=== PATIENT | male | born 1995 | race Caucasian/White ===

== ENCOUNTER 2024-10-01 14:50 | Outpatient (AMB) | payer BC, SELFPAY ==
--- NOTE | 2024-10-01 15:10 | A.OFFPC_ITS ---
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 // Requesting a PE Intake Note: patient is scheduled to establish care Hospice Home Care Coordinator Required: No Allergies No Known Allergies Allergy (Verified 10/01/24 15:13) Medication List - Last Reconciled 10/01/24 by Douglas Angulo MD No Known Home Meds Tobacco use date assessed: 10/01/24 Dental Screening Dental Screen Date: 10/01/24 Did you have a dental visit in the last 12 months?: Yes Did you have a dental problem in the last 6 months where you did not have access to dental care?: No Was dental information given to patient?: Patient has dentist 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 ?? Prior PCP:?No PCP Last office visit/CPE:? > 5 yrs Acute issue(s):? Est Care ?? PMHx:? 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 SurgHx:?L knee foreign body. FHx:? Mom: Anemia. Dad: CAD, AL age 42 & 44. SocHx: Nonsmoker, EtOH None. No drugs PFSH Social History Housing: House Patient Tobacco Use Status: Never used Tobacco e-Cigarette/Vaping Use: Never Used service: No Current occupational status: employed Current occupation: [employer] Current occupational exposures/hazards: Yes Cognitive needs: No Hearing needs: No Vision needs: No Questionnaire PHQ-9 Over the last 2 weeks, how often have you been bothered by any of the following problems? 1. Little interest or pleasure in doing things: not at all 2. Feeling down, depressed, or hopeless: not at all 3. Trouble falling or staying asleep, or sleeping too much: not at all 4. Feeling tired or having little energy: not at all 5. Poor appetite or overeating: not at all 6. Feeling bad about yourself - or that you are a failure or have let yourself or your family down: not at all 7. Trouble concentrating on things, such as reading the newspaper or watching television: not at all 8. Moving or speaking so slowly that other people could have noticed. Or the opposite - being so fidgety or restless that you have been moving around a lot more than usual: not at all 9. Thoughts that you would be better off or of hurting yourself in some wa y: not at all Total score: 0 Depression Screening Interpretation: Negative Depression Screening Done: Yes 30016 - PHQ-9 Billing: Yes Source: Developed by Drs. Arnulfo Arenas, Shira Breen, Chun Jarrell and colleagues, with an educational sasha from [employer]. Thrive Questionnaire Date Thrive assessed: 10/01/24 I am a: Patient What is your living situation today?: I have a steady place to live Within the past 12 months, did the food you bought not last and you didn't have the money to get more?: Never true Within the past 12 months, did you worry whether your food would run out before you got money to buy more?: Never true Do you have trouble paying for medicines?: No Do you have trouble getting transportation to medical appointments?: No Do you have trouble paying your heating and electricity bill?: No Do you have trouble taking care of your child, family member or friend?: No Do you have trouble with day-to-day activities such as bathing, preparing meals, shopping, managing finances, etc.?: No Are you currently unemployed and looking for a job?: No Are you interested in more education?: No Please select the resources that you would like help with: None Currently or been in a relationship where the following occur: No concerns reported THRIVE Score: 0 AUDIT C Alcohol Use Questionnaire (AUDIT-C) 1. How often do you have a drink containing alcohol?: Never 3. How often do you have six or more drinks on one occasion?: Never Total Score: 0 Score Reviewed/Action Taken: Yes ELISE-7 AMB Questionnaire ELISE-7 Date ELISE - 7 assessed: 10/01/24 Feeling nervous, anxious, or on edge: 0 = Not at all Not being able to stop or control worryin = Not at all Worrying too much about different things: 0 = Not at all Trouble relaxin = Not at all Being so restless that it is hard to sit still: 0 = Not at all Becoming easily annoyed or irritable: 0 = Not at all Feeling afraid as if something awful might happen: 0 = Not at all Total ELISE-7 score (0-4 normal; 5-9 mild; 10-14 moderate; 15-21 severe): 0 Source: Developed by Drs. Arnulfo Arenas, Shira Breen, Chun Jarrell and colleagues, with an educational sasha from [employer]. ELISE-7 Assessment Billing ELISE-7 Assessment Tool: ELISE-7 Assessment 67803 Review of Systems Const Denies chills, Denies fatigue, Denies fever(s), Denies headache(s) and Denies weakness Eyes Denies change in vision ENT Denies dizziness, Denies headache(s), Denies hearing loss, Denies nasal congestion, Denies sinus pain, Denies sinus pressure and Denies sore throat Card Denies chest pain, Denies lightheadedness, Denies dyspnea and Denies other (palpitations) Resp Denies cough, Denies dyspnea and Denies wheezing GI Denies abdominal pain, Denies melena, Denies hematochezia, Denies change in bowel habits, Denies dyspepsia and Denies nausea Denies hematuria and Denies dysuria Musc Denies abnormal gait, Denies myalgias, Denies arthralgias, Denies numbness and Denies tingling Skin/Breast Denies rash, Denies unusual bruising and Denies wounds Neuro Denies abnormal gait, Denies dizziness, Denies headache(s), Denies memory loss, Denies numbness, Denies Sensory deficit (Neuro), Denies tingling and Denies weakness Psych Denies anxiety, Denies depression and Denies memory loss Endo Denies cold intolerance, Denies fatigue, Denies heat intolerance, Denies polydipsia and Denies polyuria Jose Alfredo/Lymph Denies easy bleeding and Denies easy bruising Aller/Immun Denies wheezing Physical exam (Primary Care) Vital Signs: Last Vital Signs Temp 98.7 F 10/01/24 15:17 Pulse 73 10/01/24 15:17 Resp 16 10/01/24 15:17 BP 120/80 10/01/24 15:17 Pulse Ox 96 10/01/24 15:17 Oxygen Delivery Method Room Air 10/01/24 15:17 BMI result Body Mass Index 30.7 Tobacco/Smoking Status: Tobacco use Status Tobacco use date assessed 10/01/24 10/01/24 15:21 Patient Tobacco Use Status Never used Tobacco 10/01/24 15:21 e-Cigarette/Vaping Use Never Used 10/01/24 15:21 PHQ-9: PHQ-9 Score PHQ-9: Total score 0 10/01/24 15:23 Depression Screening Interpretation: Negative Thrive Assessment: Date of Thrive Assessment Date Thrive assessed 10/01/24 10/01/24 15:21 Currently or been in a relationship where the following occur: No concerns reported Const General: no acute distress, well developed, alert and awake Nutritional Appearance: well nourished Orientation/consciousness: patient oriented x3 HENMT Head: Yes normocephalic and Yes atraumatic Ears: hearing grossly normal bilaterally and TM's normal bilaterally General nose exam: Normal external nose present and Normal nares present Mouth: Normal oral and palatal mucosa present and moist mucous membranes Teeth and gingiva: dentition normal Throat: Yes posterior oropharynx normal Eyes General: appearance normal, both eyes and all related structures Pupils: Equal, round and reactive pupils present and Pupil accommodation reflex normal EOM: EOMs intact bilaterally Neck Neck: Yes normal visual inspection, Yes no lymphadenopathy and Yes trachea midline Thyroid: Thyroid normal Carotids: no bruits Lymphatic: no lymphadenopathy noted Chest Chest palpation & inspection: normal inspection of the chest Resp Effort & Inspection: normal respiratory effort Auscultation: clear to auscultation bilaterally Cardio Rate: regular rate Rhythm: regular rhythm Heart sounds: S1 normal heart sound present, S2 normal heart sound present, no gallops, no murmurs and no rubs Bruits: no abdominal aortic bruits and no carotid bruits GI Palpation (GI): No Abdominal aortic bruit present, Soft to palpation, nontender, No hepatosplenomegaly present and No Rebound tenderness present Auscultation: normal bowel sounds General: Yes no CVA tenderness Back/Spine/Pelvis Back: no CVA tenderness Cervical Spine: cervical ROM normal and No Cervical spine tenderness Thoracic/Lumbar Spine: thoraco-lumbar ROM normal, No pain with thoraco-lumbar ROM, No thoracic spinal tenderness and No lumbar spinal tenderness Skin Lesions: no lesions Rashes: no rashes Trauma: no lacerations or abrasions Wounds: no wounds Nails: normal Neuro General: patient oriented x3 Cranial nerves: Yes Equal, round and reactive pupils present Cognition (Neuro): normal cognition Gait exam (Neuro): Normal gait present Motor exam (neuro): 5/5 motor strength present throughout Sensory Exam: No Sensory deficit (Neuro) Deep tendon reflexes (DTR's): Right patellar reflex intensity grade: 2+ and Left patellar reflex intensity grade: 2+ Extrem General: Yes normal to inspection and No edema Psych Appearance: grossly normal Affect: normal affect Attitude: cooperative Thought process: Normal thought process present Coding Level of Care Code New Pt Level 3 (74602) New Pt Prev Care 18-39yr(51548 Diagnoses Adult general medical exam Z00.00 Family history of early CAD Z82.49 Additional Codes ELISE-7 Assessment Billing - ELISE-7 Assessment Tool: ELISE-7 Assessment 74443 ([id number]) PHQ-9 - 77015 - PHQ-9 Billing: Yes ([id number]) Assessment & Plan Assessment & Plan (1) Adult general medical exam: Code(s): Z00.00 - Encounter for general adult medical examination without abnormal findings Category: Medical Plan: 28-year-old?male?presents?as?new?patient?for?complete?physical?exam Encouraged?healthy?diet?with?active?lifestyle?and?plenty?of?exercise (2) Family history of early CAD: Code(s): Z82.49 - Family history of ischemic heart disease and other diseases of the circulatory system Category: Medical Plan: Strong?fam lonny?history?of?coronary?artery?disease?with?early?AL?(father?in?his?40s). Will?maintain high?index?of?suspicion?for cardiovascular disease?in?patient's?40s?and?will?maintain?good coronary?health?cardi ovascular?health. Plan Patient?notes?that?he?had?what?he?presumes?was?a?spurious?diagnosis?of?leukemia? at?age?13.??He?says?that?he?was?monitored?and?not?treated. No?adverse?sequela?and?patient?says?he?has?maintain?good?health. Check labs. Orders: Orders Comprehensive [place]. Panel Fast Today Z00.00 - Encounter for general adult medical examination without abnormal findings CT NG by PCR Today Z11.3 - Encounter for screening for infections with a predominantly sexual mode of transmission Microalbumin, Random (w Creat) Today I10 - Essential (primary) hypertension TSH reflex Free T4 Today Z00.00 - Encounter for general adult medical examination without abnormal findings Hepatitis B,C Profile Today Z11.3 - Encounter for screening for infections with a predominantly sexual mode of transmission Complete Blood Count Auto Diff Today Z00.00 - Encounter for general adult medical examination without abnormal findings Lipid Panel Today Z00.00 - Encounter for general adult medical examination without abnormal findings HIV Ab/Ag Today Z11.3 - Encounter for screening for infections with a predominantly sexual mode of transmission UA CC w/rflx Micro + Cult Today Z00.00 - Encounter for general adult medical examination without abnormal findings
[2024-10-01 15:17] VITALS: BP 120/80; PULSE 73; RESP 16; TEMP 37.1; O2SAT 96; BMI 30.7
--- OUTSIDE RECORDS SUMMARY | 2024-10-01 17:54 | XMS_ITS | Clinical Summary ---
Author Organization [facility] Address [address] [place] [address] Care Team Providers Care Etiquette Teacher Name Role Phone Unavailable Primary Care Provider Unavailabl e Source Comments PLEASE NOTE, if this patient is a minor, it may be UNLAWFUL to discuss sensitive information that is contained in these records (such as FAMILY PLANNING, MENTAL HEALTH or SUBSTANCE ABUSE) with the minor patient's parent or other person without the patient's specific authorization.[facility] Active Problems Problem Noted Date Diagnosed Date Immune to varicella 10/21/2016 Scoliosis 10/20/2016 Overview (10/20/2016): CXR: RUL projection of anterior rib 2. End on vessels. Scoliosis. 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 Bilateral shadow of nipples. Immunizations Immunization Administration Dates Next Due DTAP (DAPTACEL),5 PERTUSSIS ANTIGENS ,07/01/1998,05/20/1998,02/25 Flu, Preservative Free 02/08/2017 HEP A-HEP B ([place]) 02/08/2017 HPV, QUADRIVALENT 02/08/2017,10/20/2016 Hep A, Ped/adol, 2 Dose 10/20/2016 Hep B, Adult/Adol (ENERGIX/RECOMBIVAX) 8,11/24/2016 History Of Varicella 10/31/2012 MENINGOCOCCAL MCV4P (MENACTRA) 10/20/2016 MMR (MMR II/Priorix) 11/24/2016,10/03/2003 Measles, Live 11/27/1998 Moderna COVID-19 Vaccine, re d cap blue label, 12+ Primary Series 12/23/2020,11/25/2020 Mumps, Live 11/27/1998 OPV, Trivalent 06/20/2012, 4,11/04/2000,10/11 Rubella, Live 10/03/2003,06/16/1999 TDAP 10/20/2016 Td (adult) unspecified 02/27/2013,12/26/2003 Social History Tobacco Use Types Packs/Day Years Used Date Smoking Tobacco: Never Smokeless Tobacco: Never Alcohol Use Standard Drinks/Week Comments No 0 (1 standard drink = 0.6 oz pur e alcohol) Social Connections Answer Date Recorded Social Connections and Isolation 0 11/25/2020 Financial Resource Strain Answer Date R ecorded Financial Resource Strain 0 2020 Stress Answer Date Recorded Stress 0 11/25/2020 Physical Activity Answer Date Recorded Physical Activity 0 11/25/2020 Food Insecurity Answer Date Recorded Food 0 11/25/2020 Transportation Needs Answer Date Record ed Transportation 0 11/25/2020 Housing Stability Answer Date Recorded Housing 0 11/25/2020 Safety and Environment Answer Date Tj rded Safety 0 11/25/2020 Utilities Answer Date Recorded Utilities 0 11/25/2020 Employment Answer Date Recorded Employment 0 11/25/2020 Sex and Gender Information Value Date Recorded Sex Assigned at Male 02/08/2017 7:49 AM PDT Legal Sex Male 10:58 AM PDT Gender Identity Male 02/08/2017 7:49 AM PDT Sexual Orientation Straight 02/08/2017 7: 49 AM PDT Last Filed Vital Signs Vital Sign Reading Time Taken Comments Blood Pressure 122/78 02/08/2017 9:49 AM EDT Pulse 100 02/08/2017 9:49 AM EDT Temperature 37.1 ??C (98.7 ??F) 02/08/2017 9:49 AM ED T Respiratory Rate 16 02/08/2017 9:49 AM EDT Oxygen Saturation - - Inhaled Oxygen Concentration - - Weight 83.7 kg (184 lb 8 oz) 02/08/2017 9:49 AM EDT Height 175.9 cm (5' 9.25 ) 02/08/2017 9:49 AM ED T Body Mass Index 27.05 02/08/2017 9:49 AM EDT Plan of Treatment Health Maintenance Due Date Last Done Comments Anxiety Screening 1997 Hepatitis C Screening 1997 Tobacco Screening 1997 Imm-HPV (3 - Male 3-dose series) 05/03/2017 02/09/20 17, 10/20/2016 Annual Wellness (Adult): Ind icated (All Coverage) 02/08/2018 02/08/2017 Hypertension Screening (#1) 02/08/2020 Els-NOIVE-50 ( season) 2023 021, 11/25/2020 Imm-Influenza (#1) 2023 02/08/2017 Alcohol and Drug Screen 04/24/2024 02/08/2017 Depression Annual Screen 04/24/2024 Imm-DTaP/Tdap/Td (8 - Td or Tdap) 11/09/2030 11/09/2020, 10/20/2016, 02/27/2013, Additional history exists HIV Screening Completed 10/20/2016 Imm-Hepatitis B Completed 09/25/2017, 01/22, 11/24/2016 Procedures Procedure Name Priority Date/Time Associated Diagnosis Comments ANTIBODY HIV-1&HIV-2 SINGLE RESULT Routine 10/20/2016 1:20 PM EDT Refugee health examination Need for vaccination from Last 3 Months or Most Recently Relevant to Health Maintenance Results * HIV-1 & HIV-2 ANTIBODIES (10/20/2016 1:20 PM EDT) [facility] HIV 1 AND 2 ANTIBODY SCREEN NEGATIVE NEGATIVE [facility] Comment: This assay is a 4th generation assay allowing for earlier detection of HIV infection by detecting the presence of the HIV-1 p24 antigen as well as the traditional antibodies to HIV type 1 (including group O) and type 2. ??Use of a 4th generation assay is the current CDC recommendation for HIV screening. Blood specimen (specimen) Blood / Unknown 10/20/2016 1:20 PM EDT 10/20/2016 1:25 PM EDT [facility] - 10/20/2016 4:31 PM EDT [employer] [address] [place] [id number] PT ID [id number] ORD# [id number] Nataly Rose PA-C LAB - BLOOD DRAW Final [facility]u lt [facility] [address] [place] [address], from Last 3 Months or Most Recently Relevant to Health Maintenance
== END 2024-10-01 15:43 | disposition home or self-care (01) ==
LOC: HO.HMCFM 14:51
PROVIDERS: PCP Family Medicine; Visit Provider Family Medicine
DX: Z00.00 Encounter for general adult medical examination without abnormal findings (principal); Z82.49 Family history of ischemic heart disease and other diseases of the circulatory system

== ENCOUNTER → 2024-10-01 14:50 | Outpatient (BNVA) | payer BC, SELFPAY | PROVIDERS: PCP Family Medicine; Visit Provider Family Medicine | DX: Z00.00 Encounter for general adult medical examination without abnormal findings (principal); I10 Essential (primary) hypertension; Z82.49 Family history of ischemic heart disease and other diseases of the circulatory system | CPT/HCPCS: 96127 ==

== ENCOUNTER 2024-10-04 16:32 | Outpatient (REF) | payer BC, SELFPAY ==
[2024-10-04 16:48] LABS: MANUAL DIFF FLAG NO
[2024-10-04 17:12] LABS: Appearance Urine Clear; Color Urine Dark Yellow; Glucose Urine UA Negative (Negative); Leukocyte Esterase Urine Negative (Negative); Nitrite Urine Negative (Negative); PH 5.5 (5.0-9.0); Specific Gravity - Urine >= 1.030 (1.005-1.025); Urine Blood Negative (Negative); Urine Ketones 40 mg/dL (Negative); Urine Protein Negative (Neg-Trace)
[2024-10-04 17:14] LABS: Basophils Percent Auto 0.5 % (0-2); Eosinophils Absolute Auto 0.1 X10*3/uL (0.0-0.4); Hematocrit 44.9 % (42.0-52.0); Hemoglobin 15.2 g/dl (14.0-18.0); Imm Gran Abs Auto 0.01 X10*3/uL (0.00-0.03); Imm Gran Pct Auto 0.2 % (0.0-0.4); Lymphocytes Percent Auto 35.1 % (20-40); Mean Corpuscular HGB Conc 33.9 g/dl (31.0-36.0); Mean Corpuscular Hemoglobin 28.6 pg (27.0-33.0); Mean Corpuscular Volume 84.4 fL (80.0-98.0); Mean Platelet Volume 9.9 fL (9.4-12.4); Monocytes Absolute Auto 0.5 X10*3/uL (0.1-1.2); Neutrophils Absolute Auto 3.1 x10*3/uL (2.0-8.3); Neutrophils Percent Auto 54.2 % (45-73); Platelet Count 256 X10*3/uL (160-400); Red Blood Count 5.32 X10*6/uL (4.60-5.80); White Blood Count 5.8 X10*3/uL (4.8-10.8)
[2024-10-04 17:36] LABS: Microalbum/Creatinine Ratio Ur 2.5 ug/mg cr (<30)
[2024-10-04 17:41] LABS: Alanine Aminotransferase 25 U/L (0-40); Alkaline Phosphatase 54 U/L (39-117); Anion Gap 13 (12-20); Aspartate Amino Transferase 32 U/L (5-37); Bilirubin Total 1.2 mg/dL (0.0-1.0); Blood Urea Nitrogen 21 mg/dL (9-16); Calcium 9.6 mg/dL (8.4-10.2); Carbon Dioxide 25 mmol/L (22-29); Chloride 107 mmol/L (96-108); Cholesterol 234 mg/dL (<200); Estimated Glomerular Filt Rate > 60; Glucose Fasting 82 mg/dL (60-99); HDL Cholesterol 48 mg/dL (>40); LDL Cholesterol Calculated 174 mg/dL (<100); Potassium 3.9 mmol/L (3.3-5.1); Sodium 141 mmol/L (135-145); Total Protein 7.5 g/dL (6.5-8.0); Triglycerides 61 mg/dL (<150)
[2024-10-04 17:56] LABS: TSH reflex Free T4 1.01 uIU/mL (0.32-4.0)
[2024-10-07 04:28] LABS: HBS Num1 9.61 mIU/mL (0-7.99); HBc Num1 0.08 S/CO (0.00-0.79); HBsAGNum1 0.39 S/CO (0.00-0.99); HIV AB/AG Nonreactive (Nonreactive); HIV Num 1 0.06 S/CO (0.00-0.99); Hepatitis B Core Antibody Nonreactive (Nonreactive); Hepatitis B Surface Antigen Negative (Negative); ~HepC Num1 0.11 S/CO (0.00-0.79); ~Hepatitis C Antibody Nonreactive (Nonreactive)
[2024-10-07 05:07] LABS: HBS Num2 9.22 mIU/mL (0-7.99); ~Hepatitis B Surface Antibody GRAYZONE (Nonreactive)
== END 2024-10-04 16:33 | disposition home or self-care (01) ==
LOC: HO.LAB 16:32
PROVIDERS: PCP Family Medicine; Visit Provider Family Medicine
DX: I10 Essential (primary) hypertension (principal); Z11.4 Encounter for screening for human immunodeficiency virus [HIV]; Z11.3 Encounter for screening for infections with a predominantly sexual mode of transmission; Z00.00 Encounter for general adult medical examination without abnormal findings
CPT/HCPCS: 36415; 80053; 80061; 81003; 82043; 82570; 84443; 85025; 86704; 86706; 86803; 87340; 87389

== ENCOUNTER 2024-11-05 14:38 | Outpatient (AMB) | payer BC, SELFPAY ==
--- NOTE | 2024-11-05 14:36 | MHC.PC.OV ---
Intake Visit Reasons: f/u CPE-labs via telemed Intake Note: patient is scheduled for lab review Enterprise Manager Required: No Allergies No Known Allergies Allergy (Verified 11/05/24 14:37) Tobacco use date assessed: 10/01/24 Dental Screening Dental Screen Date: 10/01/24 HPI f/u CPE-labs via telemed HPI Details Patient presents by telemedicine to review CPE-labs. Reviewed labs with patient High TC and LDL cholesterol Labs are otherwise unremarkable Patient feels well today. No new complaints. [facility] Social History Housing: House Patient Tobacco Use Status: Never used Tobacco e-Cigarette/Vaping Use: Never Used service: No Current occupational status: employed Current occupation: [employer] Current occupational exposures/hazards: Yes Cognitive needs: No Hearing needs: No Vision needs: No Questionnaire Thrive Questionnaire Date Thrive assessed: 10/01/24 ELISE-7 AMB Questionnaire ELISE-7 Date ELISE - 7 assessed: 10/01/24 Source: Developed by Drs. Arnulfo Arenas, Shira Breen, Chun Jarrell and colleagues, with an educational sasha from [email or web address]. Review of Systems Const Denies chills, Denies fatigue, Denies fever(s), Denies headache(s) and Denies weakness ENT Denies dizziness and Denies headache(s) Card Denies chest pain, Denies lightheadedness, Denies dyspnea and Denies other (Palpitations) Resp Denies cough, Denies dyspnea, Denies wheezing and Denies other ( shortness of breath) Musc Denies numbness and Denies tingling Neuro Denies dizziness, Denies headache(s), Denies numbness, Denies tingling, Denies paresthesias and Denies weakness Psych Denies anxiety and Denies depression Endo Denies fatigue Aller/Immun Denies wheezing Physical exam (Primary Care) Tobacco/Smoking Status: Tobacco use Status Tobacco use date assessed 10/01/24 11/05/24 14:37 Patient Tobacco Use Status Never used Tobacco 11/05/24 14:37 e-Cigarette/Vaping Use Never Used 11/05/24 14:37 Thrive Assessment: Date of Thrive Assessment Date Thrive assessed 10/01/24 11/05/24 14:37 Telehealth Telehealth Telehealth Platform: Telephone Location of provider rendering services: practice address Location of patient: address on file Patient Identification confirmed using: Name, : Yes Telehealth method: voice only Patient verbally consented to treatment: Yes Patient verbally consented to billing insurance company: Yes Patient informed of any privacy concerns related to visit: Yes Minutes spent on Phone/Video with Pt.: 6 Coding Level of Care Code Tele Est Pt Level 2 (70376) Diagnoses Hyperlipidemia E78.5 Assessment & Plan Assessment & Plan (1) Hyperlipidemia: Code(s): E78.5 - Hyperlipidemia, unspecified Category: Medical Plan: LDL cholesterol is rather high at 174. He has a strong family history of coronary artery disease Will have him work on diet exercise weight loss and Decrease saturated fats and cholesterol Will recheck lipids prior to next visit and review. We discussed that if lipids are still significantly elevated and given his family history, we would need to consider medication.
--- OUTSIDE RECORDS SUMMARY | 2024-11-05 15:58 | XMS_ITS | Clinical Summary ---
Author Organization [facility] Address [address] [place] [address] Care Team Providers Care Developer Advocate Name Role Phone Unavailable Primary Care Provider [...] Ped/adol, 2 Dose 10/20/2016 Hep B, Adult/Adol (LVAJVSY-H-OJIMX/RECOMBIVAX-ADULT) 09/25/2017,11/24/2016 History Of Varicella 10/31/2012 MENINGOCOCCAL MCV4P (MENACTRA) [...] 100 02/08/2017 9:49 AM EDT Temperature 37.1 C (98.7 F) 02/08/2017 9:49 AM EDT Respiratory Rate 16 02/08/2017 9:49 AM EDT [...] Coverage) 02/08/2018 02/08/2017 Hypertension Screening (#1) 02/08/2020 Xqx-YALGX-13 ( season) 2023 021, 11/25/2020 Imm-Influenza (#1) [...] & HIV-2 ANTIBODIES (10/20/2016 1:20 PM EDT) [facility] HIV 1 AND 2 ANTIBODY SCREEN NEGATIVE NEGATIVE [facility] Comment: This assay is a 4th generation assay allowing for earlier detection of HIV infection by detecting the presence of the HIV-1 p24 antigen as well as the traditional antibodies to HIV type 1 (including group O) and type 2. Use of a 4th generation assay is the current CDC recommendation for HIV screening. Blood specimen (specimen) Blood / Unknown 10/20/2016 1:20 PM EDT 10/20/2016 1:[address] [facility] - 10/20/2016 4:31 PM EDT [employer] [address] [place] [id number] PT ID [id number] ORD# [id number] Nataly Rose PA-C LAB - BLOOD DRAW Final Resu lt [email or web address] [address] [place] [address], from Last 3 Months or Most Recently Relevant to Health Maintenance
== END 2024-11-05 17:05 | disposition home or self-care (01) ==
LOC: HO.HMCFM 14:38
PROVIDERS: PCP Family Medicine; Visit Provider Family Medicine
DX: E78.5 Hyperlipidemia, unspecified (principal)